=== PATIENT | female | born 1950 | race Caucasian/White ===

== ENCOUNTER 2022-04-04 13:40 | Outpatient (CLI) | payer MEDICARE, OTHER, SELFPAY | END 2022-04-04 13:41 | disposition home or self-care (01) | LOC: LKVREF 04-07 16:03 | PROVIDERS: Visit Provider Nurse Practitioner Family | DX: N39.0 Urinary tract infection, site not specified (principal); R30.0 Dysuria | CPT/HCPCS: 87086; 87186 ==